=== PATIENT | male | born 1950 | race Caucasian/White ===

== ENCOUNTER → 2017-03-02 | Outpatient (CLI) | payer OTHER | LOC: BHFA 09:00 | PROVIDERS: ATTEND Internal Medicine Cardiovascular Disease | DX: R07.9 Chest pain, unspecified (principal) ==

== ENCOUNTER 2019-03-19 06:09 | Day surgery (SDC) | payer OTHER, MEDICARE | END 2019-03-19 10:42 | disposition home or self-care (01) | LOC: FSGY 06:09 ==